=== PATIENT | male | born 1995 | race Caucasian/White ===

== ENCOUNTER 2017-10-08 00:53 | Emergency (ER) | payer OTHER ==
[~2017-10-08] VITALS: Ht 182.9 cm; Wt 86.2 kg
[2017-10-08] MEDS ORDERED: VYVANSE60 MG PO (01:15)
[2017-10-08] MEDS ORDERED: ZPAK PO (02:36)
[2017-10-08] MEDS ORDERED: GUAIFEN-CODEINE10 ML PO (02:36)
== END 2017-10-08 02:45 | disposition home or self-care (01) ==
LOC: ER 00:53
DX: J18.9 Pneumonia, unspecified organism (principal); F17.210 Nicotine dependence, cigarettes, uncomplicated

== ENCOUNTER → 2017-10-10 | Outpatient (CLI) | payer OTHER ==
[~2017-10-10] MED LIST: GUAIFEN-CODEINE10 ML PO; VYVANSE60 MG PO; ZPAK PO
== END ==
LOC: RAD 12:04
DX: J18.9 Pneumonia, unspecified organism (principal)